=== PATIENT | female | born 1990 | race Hispanic/Latino ===

== ENCOUNTER 2017-12-20 15:11 | Inpatient (IN) | payer OTHER ==
[2017-12-20 15:46] LABS: BASO # 0.1 K/uL (0.0-0.2); BASO % 0.6 % (0.0-2.0); EOS # 0.1 K/uL (0.0-0.7); EOS % 1.1 % (0.0-4.0); HEMOGLOBIN 12.3 g/dL (11.0-16.0); LYMPH # 1.4 K/uL (1.0-4.3); LYMPH % 15.1 % (20.0-40.0); MEAN CELL VOLUME 91.6 fL (81.0-99.0); MEAN CORPUSCULAR HEMOGLOBIN 30.8 pg (27.0-31.0); MEAN CORPUSCULAR HGB CONC 33.6 g/dL (33.0-37.0); MONO # 0.4 K/uL (0.0-0.8); MONO % 4.4 % (0.0-10.0); NEUT # 7.4 K/uL (1.8-7.0); NEUT % 78.8 % (50.0-75.0); RBC 3.99 Mil/uL (3.80-5.20); RED CELL DISTRIBUTION WIDTH 14.5 % (11.5-14.5); WHITE BLOOD COUNT 9.4 K/uL (4.8-10.8)
--- NOTE | 2017-12-20 15:55 | C.PDOC ---
History Of Present Illness 27 y/o female with PMHx of opioid abuse presents to the ED requesting detox. Patient admits to using heroin (sniffing) and percocet, last use was yesterday around 3:00pm. She now complains of abdominal pain associated with hot and cold sweats. Patient denies any nausea, vomiting, tremors, dizziness, hallucinations, SI, HI, or other complaints. Time Seen by Provider: 12/20/17 15:22 Chief Complaint (Nursing): Substance Abuse History Per: Patient History/Exam Limitations: no limitations Onset/Duration Of Symptoms: Hrs Current Symptoms Are (Timing): Still Present Suicide/Self Injury Attempted (Context): None Modifying Factor(s): Other (Opioids) Associated Symptoms: denies: Suicidal Thoughts, Suicidal Plan Past Medical History Reviewed: Historical Data, Nursing Documentation, Vital Signs Vital Signs: Last Vital Signs Temp 98.3 F 12/20/17 15:17 Pulse 74 12/20/17 15:17 Resp 16 12/20/17 15:17 BP 116/66 12/20/17 15:17 Pulse Ox 100 12/20/17 15:17 - Medical History PMH: Asthma, Depression Family History: States: No Known Family Hx - Social History Hx Alcohol Use: No Hx Substance Use: Yes - Immunization History Hx Tetanus Toxoid Vaccination: No Hx Influenza Vaccination: Yes Hx Pneumococcal Vaccination: No Review Of Systems Except As Marked, All Systems Reviewed And Found Negative. Constitutional: Positive for: Sweats. Negative for: Fever, Chills Cardiovascular: Negative for: Chest Pain, Palpitations Respiratory: Negative for: Shortness of Breath Gastrointestinal: Positive for: Abdominal Pain. Negative for: Nausea, Vomiting, Diarrhea Musculoskeletal: Negative for: Other (tremor) Neurological: Negative for: Weakness, Numbness Psych: Negative for: Suicidal ideation (or homicidal ideation), Other (hallucinations) Physical Exam - Physical Exam Appears: Non-toxic, No Acute Distress Skin: Normal Color, Warm, Dry Head: Atraumatic, Normacephalic Eye(s): bilateral: Normal Inspection Oral Mucosa: Moist Neck: Normal ROM Chest: Symmetrical Cardiovascular: Rhythm Regular Respiratory: Normal Breath Sounds, No Accessory Muscle Use, Other (speaking in full sentences) Gastrointestinal/Abdominal: Soft, No Tenderness, No Guarding, No Rebound Extremity: Bilateral: Atraumatic, Normal Color And Temperature Neurological/Psych: Oriented x3, Normal Speech ED Course And Treatment - Laboratory Results Result Diagrams: 12/20/17 15:41 12/20/17 15:41 O2 Sat by Pulse Oximetry: 100 (RA) Pulse Ox Interpretation: Normal Medical Decision Making Medical Decision Making: Impression: Detox for heroin/percocet abuse, Pre-screened Plan: --CMP --Magnesium --Phosphorous --CBC --Alcohol serum --UDS --UA --Urine HCG --psychiatric social worker will evaluate and arrange detox if appropriate Disposition Counseled Patient/Family Regarding: Diagnosis - Disposition Disposition: HOSPITALIZED Disposition Time: 18:39 Condition: GUARDED Forms: [facility] (Urdu) - Clinical Impression Clinical Impression: Drug dependence - Scribe Statement The provider has reviewed the documentation as recorded by the Rigo Gallardo Provider Attestation: All medical record entries made by the [employer] were at my direction and pers onally dictated by me. I have reviewed the chart and agree that the record accurately reflects my personal performance of the history, physical exam, medical decision making, and the department course for this patient. I have also personally directed, reviewed, and agree with the discharge instructions and disposition. Decision To Admit - Pt Status Changed To: Hospital Disposition Of: Inpatient - Admit Certification Admit to Inpatient:: After my assessment, the patient will require hospital ization for at least two midnights. This is because of the severity of symptoms shown, intensity of services needed, and/or the medical risk in this patient being treated as an outpatient. - InPatient: Physician Admission Certification: I certify that this patient requires 2 or more midnights of care for the following reason:: detox, withdrawl. - . Bed Request Type: Detox Patient Diagnosis: Drug dependence
[2017-12-20 16:04] LABS: ALB/GLOB RATIO 1.5 (1.0-2.1); ALBUMIN 4.1 g/dL (3.5-5.0); ALT/SGPT 20 U/L (9-52); AST/SGOT 19 U/L (14-36); BLOOD UREA NITROGEN 17 mg/dL (7-17); CALCIUM 8.7 mg/dl (8.6-10.4); GFR NON-AFRICAN AMERICAN > 60
[2017-12-20 17:08] LABS: HCG,QUALITATIVE URINE NEGATIVE (NEGATIVE)
[2017-12-20 17:11] LABS: SQUAMOUS EPITHIAL 3 /hpf (0-5); URINE BACTERIA MOD (<OCC); URINE BILIRUBIN NEGATIVE (NEGATIVE); URINE BLOOD NEGATIVE (NEGATIVE); URINE CLARITY Hazy (Clear); URINE GLUCOSE (UA) NORMAL (Normal); URINE LEUKOCYTE ESTERASE TRACE Leu/uL (Negative); URINE PROTEIN NEGATIVE (NEGATIVE); URINE UROBILINOGEN NORMAL mg/dL (0.2-1.0)
[2017-12-20 17:15] LABS: URINE COLOR YELLOW (YELLOW)
[2017-12-20 17:28] LABS: BARBITURATES, UR NEGATIVE (NEGATIVE); BENZODIAZEPINES, UR NEGATIVE (NEGATIVE); PHENCYCLIDINE, UR NEGATIVE (NEGATIVE)
[2017-12-20 17:31] LABS: OPIATES, UR POSITIVE (NEGATIVE)
--- NOTE | 2017-12-20 18:55 | PCM.BM ---
<Desiree Vogt - Last Filed: 12/20/17 18:54> Treatment Plan Problems - Problems identified on initial assessmt Potential for opiate withdrawal Date Initiated: 12/20/17 Time Initiated: 18:54 Assessment reference: NA Status: Active Treatment assets and liabiliti Patient Assests: ADL independent, negotiates basic needs, cognitively intact Patient Liabilities: substance abuse - Milieu Protocol Maintain good personal hygiene: daily Encourage regular showers, daily Remind patient to perform daily oral care, daily Assist patient to perform ADL's Conduct patient checks and document Observation sheet: Q15 minutes Maintain personal safety: every shift Educate patient to report safety concerns to staff, every shift Monitor environment for contraband/sharps Medication safety: Monitor for expected outcome, potential side effects: every shift, Assess barriers to learning: every shift, Assess readiness for medication education: every shift <Laverne Artis - Last Filed: 12/22/17 08:43> Family Contact Family involvement: Famliy/SO not involved - Goals for Treatment Patient goals for treatment: Complete detox and transition to inpatient-regional intermodal truck driver. Discharge/Continuing Care - Education Needs Education Needs: Patient Medication, Patient Diagnosis/Disease Process, Patient Coping Skills, Patient Anger Management skills, Patient Placement options, Patient Community resources - Discharge Discharge Criteria: No longer exhibiting s/s of withdrawal, Reduction of target symptoms Discharge to:: Substance Abuse Rehab - Treatment Team Participation Patient/Family/SO Statement: 12/22/17 08:43 "I wanna try to get in to [facility]..." Discussed with Family/SO: No Was Patient/Family/SO present at Treatment Team Meeting: Yes <Leti Cloud - Last Filed: 12/22/17 14:34> - Diagnosis (1) Opioid use disorder, severe, dependence Status: Acute Interventions: 12/22/17 14:34 * Assess 7x/week regarding severity of withdrawal * Educate regarding risks, benefits, side effects and alternatives of medicat ions * Use Motivational Interviewing for abstinence * Use CBT for relapse prevention * Medication management for withdrawal symptoms * Encourage medication assisted treatment *
[2017-12-21] MEDS ORDERED: Albuterol HFA 90 mcg/actuation (8 g) INH PRN (09:38)
[2017-12-21] MEDS ORDERED: Aluminum Hydroxide/Magnesium Hydroxide Susp (30 mL) PO PRN (14:21)
--- NOTE | 2017-12-21 14:24 | PCM.PSYCH ---
Initial Psychiatric Evaluation - Initial Psychiatric Evaluation Type of Admission: Voluntary Legal Status: Capacity Chief Complaint (in patient's own words): "I need detox" History of Present Illness and Precipitating Events: Pt is a 27yr old female with a history of asthma, depression, and varicose veins. She presented to the ED today requesting detox. Patient states that her use of opiates began in 2015 after she was prescribed opiate painkillers after a vein stripping due to varicose veins. She states she was able to get off of them while she was , then was given them again for pain after her section despite dislosure of an opiate abuse history. She has been using opiates since then. Typical usage is 2 Cathy 30mg and 3-7x 10mg Percocet per day. She states that when she is not able to get paink illers she will sniff 1-2 bags of heroin. Last use was yesterday around 3pm. She denies use of other drugs or alcohol use however her ED Utox tested positive for cocaine, which she believes is mixed into her cocaine. She admits she is currently withdrawing. Patient has a history of 2 psychiatric hospital admissions for post- depression, and when she was 14 for Ecstacy use at [facility]. She previously attended a detox program at [facility] in August. She denies thoughts of self harm/harm to others, depressed mood, anhedonia, or hallucinations and states that her mood has been OK while on treatment for depression. She admits to smoking 1/2 a pack a day on and off since she was 13 years old. Social hx: Patient lives with her grandmother and has 1 daughter whom her mother has custody of. 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 She has been eating well. Medical hx: Varicose veins, asthma, HPV Allergies: Amoxicillin, strawberries--> Rxn is hives for both Surgical hx: Vein stripping, D&C curettage, section, cold knife cervical cone biopsy Family hx: Denies Current Medications: Active Medications Generic Name Dose Route Start Last Admin Trade Name Freq PRN Reason Stop Dose Admin Albuterol 1 puff 12/21/17 09:38 Ventolin Hfa 90 Mcg/Actuation (8 G) INH RQ4 PRN SOB Fluoxetine HCl 20 mg 12/21/17 10:00 12/21/17 10:57 Prozac PO 20 mg BID ERIK Administration Hydroxyzine HCl 25 mg 12/20/17 19:20 12/20/17 21:11 Atarax PO 25 mg Q6 PRN Administration Anxiety Methadone HCl 15 mg 12/21/17 10:00 12/21/17 10:57 Methadone PO 12/25/17 09:59 15 mg Q24H ERIK Administration Taper Trazodone HCl 50 mg 12/20/17 19:19 12/20/17 21:11 Desyrel PO 50 mg HS PRN Administration Insomnia Past Psychiatric History - Past Psychiatric History Previous Treatment History: Intensive Outpatient Pertinent Medical Hx (Current Medical&Sleep Prob, Allergies): Allergies Allergy/AdvReac Type Severity Reaction Status Date / Time amoxicillin Allergy Verified 12/20/17 15:16 strawberry Allergy Verified 12/20/17 15:16 Review of Systems - Neurological Neurological: UNREMARKABLE - Psychiatric Psychiatric: Abnormal Sleep Pattern, Anxiety, Change in Appetite, Depression, Difficulty Concentrating, Irritability. absent: Hallucinations, Homicidal Ideation, Paranoia, Suicidal Ideation Mental Status Examination - Personal Presentation Personal Presentation: Looks stated age - Affect Affect: Constricted - Motor Activity Motor Activity: Calm - Reliability in Providing Information Reliability in Providing Information: Good - Speech Speech: Organized - Mood Mood: Depressed, Anxious - Formal Thought Process Formal Thought Process: No Impairment - Cognitive Functions Orientation: Person, Place, Situation, Time Attention/Concentration: Attentive Estimate of Intelligence: Average Judgement: Intact, as evidence by: Insight regarding need for hospitalization Memory: Recent intact, as evidence by: Ability to recall events of the day, Remote intact, as evidenced by: Ability to recall historical events - Risk Risk: Withdrawal, Diminished functioning - Strength & Assets Inventory Strength & Assets Inventory: Cooperative - Limitations Limitations: Living alone DSM 5 DX - DSM 5 DSM 5 Diagnosis: Opioid withdrawal Opioid use d/o - severe r/o cocaine use d/o Major depression, moderate - Recommended/Plan of Treatment Treatment Recommendations and Plan of Treatment: Methadone taper Continue Prozac 20mg BID, becaus eof severe nausea her dr split the dose As needed medications All risks, benefits and alternatives of the meds discussed, and the pt agreed and understood. Attend groups and activities Supportive therapy and psychoeducation [place] for abstinence CBT for relapse prevention Encourage MAT Refer to rehab or IOP, and self-help groups Teach healthy lifestyle methods, i.e. diet, exercise, meditation 33 min Projected ELOS: 4-5 days Prognosis: good w treatment - Smoking Cessation Smoking Cessation Initiated: Yes
--- NOTE | 2017-12-22 13:05 | PCM.PYCHPN ---
Psychiatric Progress Note - Psychiatric Progress Note Patient seen today, length of contact: 17 min Patient Chief Complaint: "I am tired" Problems Identified/Issues Discussed: The pt is seen, chart reviewed, case discussed with staff. The pt is compliant with medications and reports no side-effects. Symptoms are improving but needs more time to stabilize. She has low BP and P , so methadone is held for a while Pt attends groups and activities. Support given, psycho-education provided. After care discussed. Medication Change: Yes (detox changes daily) Medical Record Reviewed: Yes Mental Status Examination - Cognitive Function Orientation: Person, Place, Situation, Time Memory: Intact Attention: WNL Concentration: Poor Association: WNL Fund of Knowledge: WNL - Mood Mood: Depressed, Anxious - Affect Affect: Constricted - Speech Speech: Appropriate - Formal Thought Process Formal Thought Process: No Impairment - Suicidal Ideation Suicidal Ideation: No - Homicidal Ideation Homicidal Ideation: No Goal/Treatment Plan - Goal/Treatment Plan Need for Continued Stay: Discharge may exacerbated symptoms, Severe functional impairment Progress Toward Problem(s) and Goals/Treatment Plan: Methadone taper Continue Prozac 20mg BID, becaus eof severe nausea her dr split the dose As needed medications All risks, benefits and alternatives of the meds discussed, and the pt agreed and understood. Attend groups and activities Supportive therapy and psychoeducation [place] for abstinence CBT for relapse prevention Encourage MAT Refer to rehab or IOP, and self-help groups Teach healthy lifestyle methods, i.e. diet, exercise, meditation Estimated Date of D/C: 12/24/17
--- NOTE | 2017-12-22 16:02 | RAD ---
HISTORY: rehab admission COMPARISON: No prior. TECHNIQUE: Chest PA and lateral FINDINGS: LUNGS: No focal consolidation. Please note that chest x-ray has limited sensitivity for the detection of pulmonary masses. PLEURA: No significant pleural effusion identified. No definite pneumothorax . CARDIOVASCULAR: The cardiomediastinal silhouette appears within normal limits of size. No atherosclerotic calcification present. OSSEOUS STRUCTURES: No acute osseous abnormality identified. VISUALIZED UPPER ABDOMEN: Unremarkable. OTHER FINDINGS: None. IMPRESSION: No focal consolidation, significant pleural effusion, or definite pneumothorax identified.
--- NOTE | 2017-12-23 08:42 | PCM.PYCHPN ---
Psychiatric Progress Note - Psychiatric Progress Note Patient seen today, length of contact: 16 min Patient Chief Complaint: "I am OK" Problems Identified/Issues Discussed: The pt is seen, chart reviewed, case discussed with staff. Support and psychoeducation given, CBT and [place] used briefly No new symptoms reported, improving slowly and needs more time No SEs from medications, except for low BP/P from methadone; risks discussed. After care discussed Medication Change: Yes (detox changes daily) Medical Record Reviewed: Yes Mental Status Examination - Cognitive Function Orientation: Person, Place, Situation, Time Memory: Intact Attention: WNL Concentration: Poor Association: WNL Fund of Knowledge: WNL - Mood Mood: Depressed, Anxious - Affect Affect: Constricted - Speech Speech: Appropriate - Formal Thought Process Formal Thought Process: No Impairment - Suicidal Ideation Suicidal Ideation: No - Homicidal Ideation Homicidal Ideation: No Goal/Treatment Plan - Goal/Treatment Plan Need for Continued Stay: Discharge may exacerbated symptoms, Severe functional impairment Progress Toward Problem(s) and Goals/Treatment Plan: Methadone taper Continue Prozac 20mg BID, becaus eof severe nausea her dr split the dose As needed medications All risks, benefits and alternatives of the meds discussed, and the pt agreed and understood. Attend groups and activities Supportive therapy and psychoeducation [place] for abstinence CBT for relapse prevention Encourage MAT Refer to rehab or IOP, and self-help groups Teach healthy lifestyle methods, i.e. diet, exercise, meditation Estimated Date of D/C: 12/24/17
--- NOTE | 2017-12-24 08:50 | PCM.PYCHDC ---
Mental Status Examination - Mental Status Examination Orientation: Person Discharge Summary - Discharge Note Consultations:: List each consultation separately and include: 1. Reason for request. 2. Findings. 3. Follow-up Summary of Hospital Course include:: 1. Description of specific treatment plan utilized for patients during their course of treatmen. 2. Summarize the time- course for resolution of acute symptoms and/or regressed behaviors. 3. Describe issues identified and worked on during hospitalization. 4. Describe medication utilized. 5. Describe medical problems identified and treated. 6. Reassessment of suicide risk Summary of Hospital Course: Pt is a 27yr old female with a history of asthma, depression, and varicose veins. She presented to the ED today requesting detox. Patient states that her use of opiates began in 2015 after she was prescribed opiate painkillers after a vein stripping due to varicose veins. She states she was able to get off of them while she was , then was given them again for pain after her section despite dislosure of an opiate abuse history. She has been using opiates since then. Typical usage is 2 Cathy 30mg and 3-7x 10mg Percocet per day. She states that when she is not able to get painkillers she will sniff 1-2 bags of heroin. Last use was yesterday around 3pm. She denies use of other drugs or alcohol use however her ED Utox tested positive for cocaine, which she believes is mixed into her cocaine. She admits she is currently withdrawing. Patient has a history of 2 psychiatric hospital admissions for post- depression, and when she was 14 for Ecstacy use at [facility]. She previously attended a detox program at [facility] in August. She denies thoughts of self harm/harm to others, depressed mood, anhedonia, or hallucinations and states that her mood has been OK while on treatment for depression. She admits to smoking 1/2 a pack a day on and off since she was 13 years old. Social hx: Patient lives with her grandmother and has 1 daughter whom her mother has custody of. 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 She has been eating well. Medical hx: Varicose veins, asthma, HPV Allergies: Amoxicillin, strawberries--> Rxn is hives for both Surgical hx: Vein stripping, D&C curettage, section, cold knife cervical cone biopsy Family hx: Denies She went to 's home and will stay inside until [facility] has a bed either tomorrow or Wednesday. She is accepted. Her BP/P dropped with methadone and so her detox was difficult. - Final Diagnosis (DSM 5) Condition upon Discharge: GUARDED Disposition: HOME/ ROUTINE Follow-up Treatment Plan: Methadone taper Continue Prozac 20mg BID, becaus eof severe nausea her dr split the dose As needed medications All risks, benefits and alternatives of the meds discussed, and the pt agreed and understood. Attend groups and activities Supportive therapy and psychoeducation [place] for abstinence CBT for relapse prevention Encourage MAT Refer to rehab or IOP, and self-help groups Teach healthy lifestyle methods, i.e. diet, exercise, meditation Prescriptions/Medication Reconciliation: Albuterol HFA [Ventolin HFA 90 mcg/actuation (8 g)] 1 puff INH RQ4 PRN #1 inhaler PRN Reason: SOB FLUoxetine [Prozac] 20 mg PO BID #60 cap Nitrofurantoin Macrocrystals [Macrobid] 100 mg PO BIDCC #10 cap traZODone [Desyrel] 50 mg PO HS PRN #30 tab PRN Reason: Insomnia
[2017-12-24 11:18] VITALS: BP 87/44; PULSE 74; RESP 20; TEMP 97.5; O2SAT 99
== END 2017-12-24 11:45 | disposition home or self-care (01) | DRG 751 ==
LOC: C.ER 15:11 → C.7D 18:40
PROVIDERS: ADMIT Psychiatry & Neurology Psychiatry; ATTEND Psychiatry & Neurology Psychiatry
DX: F32.1 Major depressive disorder, single episode, moderate (principal); F11.23 Opioid dependence with withdrawal; F17.210 Nicotine dependence, cigarettes, uncomplicated; J45.909 Unspecified asthma, uncomplicated

== ENCOUNTER 2018-04-02 16:49 | Inpatient (IN) | payer OTHER ==
--- NOTE | 2018-04-02 17:39 | C.PDOC ---
History Of Present Illness 28 year old female presents to the ED requesting narcotic pill detox. No medical complaints at this time. <Deanna Bell - Last Filed: 04/02/18 19:03> History Per: Patient History/Exam Limitations: no limitations Recent travel outside of the [place]: No <Deanna Bell - Last Filed: 04/02/18 19:03> <Liam Yeboah - Last Filed: 04/02/18 19:33> Time Seen by Provider: 04/02/18 17:37 Chief Complaint (Nursing): Substance Abuse Past Medical History Reviewed: Historical Data, Nursing Documentation, Vital Signs Vital Signs: Last Vital Signs Temp 97.3 F L 04/02/18 16:55 Pulse 83 04/02/18 16:55 Resp 16 04/02/18 16:55 BP 85/57 L 04/02/18 16:55 Pulse Ox 100 04/02/18 16:55 - Medical History PMH: Asthma, Depression Denies: Diabetes, Hepatitis, HIV, HTN, Seizures, Sexually Transmitted Disease Family History: States: Unknown Family Hx - Social History Hx Alcohol Use: No Hx Substance Use: Yes - Immunization History Hx Tetanus Toxoid Vaccination: No Hx Influenza Vaccination: Yes Hx Pneumococcal Vaccination: No <Deanna Bell - Last Filed: 04/02/18 19:03> Vital Signs: Last Vital Signs Temp 97.3 F L 04/02/18 16:55 Pulse 83 04/02/18 16:55 Resp 16 04/02/18 16:55 BP 85/57 L 04/02/18 16:55 Pulse Ox 100 04/02/18 19:03 <Liam Yeboah - Last Filed: 04/02/18 19:33> Review Of Systems Except As Marked, All Systems Reviewed And Found Negative. Neurological: Positive for: Other (narcotic pill detox.) <Deanna Bell - Last Filed: 04/02/18 19:03> Physical Exam - Physical Exam Appears: Non-toxic, No Acute Distress Skin: Warm, Dry Head: Atraumatic, Normacephalic Eye(s): bilateral: Normal Inspection Oral Mucosa: Moist Neck: Normal ROM Chest: Symmetrical Cardiovascular: Rhythm Regular, No Murmur Respiratory: Normal Breath Sounds, No Rales, No Rhonchi, No Wheezing, No Other (NARD) Gastrointestinal/Abdominal: Normal Exam, Soft, No Tenderness Extremity: Bilateral: Atraumatic, Normal Color And Temperature Neurological/Psych: Oriented x3, Normal Speech <Deanna Bell - Last Filed: 04/02/18 19:03> ED Course And Treatment - Laboratory Results Result Diagrams: 04/02/18 18:20 04/02/18 18:20 O2 Sat by Pulse Oximetry: 100 (RA) Pulse Ox Interpretation: Normal <Deanna Bell - Last Filed: 04/02/18 19:03> - Laboratory Results Result Diagrams: 04/02/18 18:20 04/02/18 18:20 Lab Results: Total Bilirubin 0.3 mg/dL (0.2-1.3) 04/02/18 18:20 AST 19 U/L (14-36) 04/02/18 18:20 ALT 24 U/L (9-52) 04/02/18 18:20 Alkaline Phosphatase 66 U/L (38-126) 04/02/18 18:20 Total Protein 6.5 g/dL (6.3-8.3) 04/02/18 18:20 Albumin 4.1 g/dL (3.5-5.0) 04/02/18 18:20 Globulin 2.4 gm/dL (2.2-3.9) 04/02/18 18:20 Albumin/Globulin Ratio 1.7 (1.0-2.1) 04/02/18 18:20 Urine Color [place] (YELLOW) 04/02/18 17:37 Urine Clarity Hazy (Clear) 04/02/18 17:37 Urine pH 5.0 (5.0-8.0) 04/02/18 17:37 Ur Specific [place] 1.026 (1.003-1.030) 04/02/18 17:37 Urine Protein Negative mg/dL (NEGATIVE) 04/02/18 17:37 Urine Glucose (UA) Normal mg/dL (Normal) 04/02/18 17:37 Urine Ketones Negative mg/dL (NEGATIVE) 04/02/18 17:37 Urine Blood Negative (NEGATIVE) 04/02/18 17:37 Urine Nitrate Negative (NEGATIVE) 04/02/18 17:37 Urine Bilirubin Negative (NEGATIVE) 04/02/18 17:37 Urine Urobilinogen 2.0 mg/dL (0.2-1.0) H 04/02/18 17:37 Ur Leukocyte Esterase Neg [place]ira/uL (Negative) 04/02/18 17:37 Urine WBC (Auto) 14 /hpf (0-5) H 04/02/18 17:37 Urine RBC (Auto) 4 /hpf (0-3) H 04/02/18 17:37 Ur Squamous Epith Cells 2 /hpf (0-5) 04/02/18 17:37 Urine Bacteria Rare (<OCC) 04/02/18 17:37 Urine HCG, Qual Negative (NEGATIVE) 04/02/18 17:37 Urine HCG, Qual Negative (NEGATIVE) 04/02/18 17:37 Lab Interpretation: Abnormal (tox + benzo's, THC) Urine POC: Negative <Liam Yeboah - Last Filed: 04/02/18 19:33> Progress - Re-Evaluation Re-evaluation Note: 04/02/18 17:38 D/W CRISIS WILL EVAL - Data Reviewed Data Reviewed: Lab, Old records <Deanna Bell - Last Filed: 04/02/18 19:03> Medical Decision Making Medical Decision Making: Initial plan: -Blood sent. -HCG Urine -Urinalysis Progress/Update: Current vitals are consistent with prior vitals from previous visits. Pt is medically cleared for detox, crisis notified. <Deanna Bell - Last Filed: 04/02/18 19:03> Medical Decision Makin: signed over pending detox for opiates/percocet/Roxicet pt seen examined comfortable, pupilar mydriasis tox + benzo's, + THC, but not narcs d/w Crisis, sometimes Perc not picked up on our UDS 1930: ok to Detox <Liam Yeboah - Last Filed: 04/02/18 19:33> Disposition Discussed With : Emre Chacon Counseled Patient/Family Regarding: Diagnosis, Need For Followup - Disposition Disposition Time: 19:00 <Deanna Bell - Last Filed: 04/02/18 19:03> Doctor Will See Patient In The: Hospital <Liam Yeboah - Last Filed: 04/02/18 19:33> - Disposition Disposition: HOME/ ROUTINE Condition: GOOD Forms: [facility] ([place]) - Clinical Impression Clinical Impression: Opioid use disorder, severe, dependence - Scribe Statement The provider has reviewed the documentation as recorded by the Scribe (Mary Stovall) Provider Attestation: All medical record entries made by the Scribe were at my direction and personally dictated by me. I have reviewed the chart and agree that the record accurately reflects my personal performance of the history, physical exam, medical decision making, and the department course for this patient. I have also personally directed, reviewed, and agree with the discharge instructions and disposition. <Deanna Bell - Last Filed: 04/02/18 19:03> Physician Patient Turnover Patient Signed Over To: Liam Yeboah Handoff Comments: FU CRISIS DISPO <Deanna Bell - Last Filed: 04/02/18 19:03>
[2018-04-02 17:41] LABS: HCG,QUALITATIVE URINE NEGATIVE (NEGATIVE)
[2018-04-02 17:45] LABS: SQUAMOUS EPITHIAL 2 /hpf (0-5); URINE BACTERIA RARE (<OCC); URINE BILIRUBIN NEGATIVE (NEGATIVE); URINE BLOOD NEGATIVE (NEGATIVE); URINE CLARITY Hazy (Clear); URINE COLOR Amber (YELLOW); URINE GLUCOSE (UA) NORMAL (Normal); URINE LEUKOCYTE ESTERASE NEG Leu/uL (Negative); URINE PROTEIN NEGATIVE (NEGATIVE)
[2018-04-02 17:58] LABS: BARBITURATES, UR NEGATIVE (NEGATIVE); OPIATES, UR NEGATIVE (NEGATIVE); PHENCYCLIDINE, UR NEGATIVE (NEGATIVE)
[2018-04-02 17:59] LABS: BENZODIAZEPINES, UR POSITIVE (NEGATIVE)
[2018-04-02 18:23] LABS: BASO % 0.6 % (0.0-2.0); EOS # 0.2 K/uL (0.0-0.7); EOS % 2.3 % (0.0-4.0); HEMOGLOBIN 11.9 g/dL (11.0-16.0); LYMPH # 2.4 K/uL (1.0-4.3); LYMPH % 35.6 % (20.0-40.0); MEAN CELL VOLUME 91.8 fL (81.0-99.0); MEAN CORPUSCULAR HEMOGLOBIN 30.3 pg (27.0-31.0); MONO # 0.4 K/uL (0.0-0.8); MONO % 5.9 % (0.0-10.0); NEUT # 3.7 K/uL (1.8-7.0); NEUT % 55.6 % (50.0-75.0); RBC 3.92 Mil/uL (3.80-5.20); RED CELL DISTRIBUTION WIDTH 13.2 % (11.5-14.5); WHITE BLOOD COUNT 6.7 K/uL (4.8-10.8)
[2018-04-02 18:38] LABS: ALB/GLOB RATIO 1.7 (1.0-2.1); ALBUMIN 4.1 g/dL (3.5-5.0); ALT/SGPT 24 U/L (9-52); AST/SGOT 19 U/L (14-36); BLOOD UREA NITROGEN 14 mg/dL (7-17); CALCIUM 8.3 mg/dl (8.6-10.4); GFR NON-AFRICAN AMERICAN > 60
--- NOTE | 2018-04-02 20:12 | PCM.BM ---
<Yasmany Wade - Last Filed: 04/02/18 20:09> Treatment Plan Problems - Problems identified on initial assessmt denial Date Initiated: 04/02/18 Time Initiated: 20:09 Assessment reference: NA Status: Active defenensive coping Date Initiated: 04/02/18 Time Initiated: 20:10 Assessment reference: NA Status: Active hopelelessness Date Initiated: 04/02/18 Time Initiated: 20:12 Assessment reference: NA Status: Active Treatment assets and liabiliti Patient Assests: ADL independent, negotiates basic needs, cognitively intact Patient Liabilities: substance abuse - Milieu Protocol Maintain good personal hygiene: daily Encourage regular showers, daily Remind patient to perform daily oral care, daily Assist patient to perform ADL's Conduct patient checks and document Observation sheet: Q15 minutes Maintain personal safety: every shift Educate patient to report safety concerns to staff, every shift Monitor environment for contraband/sharps Medication safety: Monitor for expected outcome, potential side effects: every shift, Assess barriers to learning: every shift, Assess readiness for medication education: every shift <Leti Cloud - Last Filed: 04/05/18 13:20> - Diagnosis (1) Opioid use disorder, severe, dependence Status: Acute Interventions: 04/04/18 13:20 * Assess 7x/week regarding severity of withdrawal * Educate regarding risks, benefits, side effects and alternatives of medications * Use Motivational Interviewing for abstinence * Use CBT for relapse prevention * Medication management for withdrawal symptoms * Encourage medication assisted treatment * <Laverne Artis - Last Filed: 04/06/18 09:15> Family Contact Family involvement: Famliy/SO not involved - Goals for Treatment Patient goals for treatment: Complete detox and aedhere to [facility] guidelines for aftercare. Discharge/Continuing Care - Education Needs Education Needs: Patient Medication, Patient Diagnosis/Disease Process, Patient Coping Skills, Patient Anger Management skills, Patient Placement options, Patient Community resources, Patient Other ([facility] involvement) - Discharge Discharge Criteria: No longer exhibiting s/s of withdrawal, Reduction of target symptoms Discharge to:: Home - Treatment Team Participation Patient/Family/SO Statement: 04/06/18 09:15 "I gotta do a psychological evaluation with [facility] and they're gonna recommend a treatment program after that..." Discussed with Family/SO: No Was Patient/Family/SO present at Treatment Team Meeting: Yes
[2018-04-03] MEDS ORDERED: Aluminum Hydroxide/Magnesium Hydroxide Susp (30 mL) PO PRN (01:37)
--- NOTE | 2018-04-03 09:11 | PCM.PSYCH ---
Initial Psychiatric Evaluation - Initial Psychiatric Evaluation Type of Admission: Voluntary Legal Status: Capacity Chief Complaint (in patient's own words): I came in to get help.' History of Present Illness and Precipitating Events: Pt. is a 28 years old female, who currently lives with her grandmother, currently unemployed, came to the ED to get help in opioid detox. Patient reports history of 3 inpatient psychiatric hospitalizations, due to depression. She also reports history of follow-up with an outpatient psychiatrist in the past. However she reports that her psychiatrist stopped her medications. She reports history of taking Prozac and Xanax in the past. She reports that currently she is abusing on 7-15 10 mg Percocets on a daily basis. She reports that yesterday she consumed more than 10 tablets and started feeling withdrawal symptoms, so she came to the ED to get help. She reports withdrawal symptoms including anxiety, headaches, and sweating. She reports anxiety but denies any feelings of hopelessness or helplessness. She denies any suicidal ideation or any homicidal ideation. She denies any auditory hallucinations and paranoia. She also reports of abusing cannabis but denies any drinking or any other substance abuse. Past medical history None reported Current Medications: Active Medications Generic Name Dose Route Start Last Admin Trade Name Freq PRN Reason Stop Dose Admin Al Hydrox/Mg Hydrox/Simethicone 30 ml 04/03/18 01:37 Maalox 30 Ml PO TID PRN Indigestion / Heartburn Clonidine HCl 0.1 mg 04/03/18 01:37 Catapres PO Q4 PRN COWS Score More or Equal to 5 Dicyclomine HCl 10 mg 04/03/18 01:37 Bentyl PO Q6 PRN Muscle spasm Hydroxyzine HCl 25 mg 04/02/18 21:41 Atarax PO Q6 PRN Anxiety Loperamide HCl 2 mg 04/03/18 01:37 Imodium PO Q8 PRN Diarrhea Ondansetron HCl 4 mg 04/03/18 01:37 Zofran Tab PO Q8 PRN Nausea/Vomiting Pseudoephedrine HCl 60 mg 04/03/18 01:37 Sudafed Tab PO QID PRN Nasal/Sinus Congestion Trazodone HCl 50 mg 04/02/18 22:00 Desyrel PO HS PRN Insomnia Past Psychiatric History - Past Psychiatric History Previous Treatment History: Inpatient Pertinent Medical Hx (Current Medical&Sleep Prob, Allergies): Allergies Allergy/AdvReac Type Severity Reaction Status Date / Time amoxicillin Allergy Verified 04/02/18 16:51 strawberry Allergy Verified 04/02/18 16:51 No Known Home Med 04/02/18 Review of Systems - Review of Systems All systems: reviewed and no additional remarkable complaints except - Psychiatric Psychiatric: Anxiety, Irritability. absent: Suicidal Ideation Mental Status Examination - Personal Presentation Personal Presentation: Looks stated age - Affect Affect: Constricted - Motor Activity Motor Activity: Calm - Reliability in Providing Information Reliability in Providing Information: Fair - Speech Speech: Organized - Mood Mood: Anxious - Formal Thought Process Formal Thought Process: No Impairment - Obsessions/Compulsions Obsessions: No Compulsions: No - Cognitive Functions Orientation: Person, Place, Situation, Time Sensorium: Alert Abstract Thinking: [place] Estimate of Intelligence: Below average Judgement: Imparied, as evidence by: Poor judgement, Intact, as evidence by: Insight regarding need for hospitalization - Risk Risk: Withdrawal, Diminished functioning - Limitations Limitations: Living alone DSM 5 DX - DSM 5 DSM 5 Diagnosis: Opioid use disorder severe Opioid withdrawal Cannabis use disorder moderate History of post depression - Recommended/Plan of Treatment Treatment Recommendations and Plan of Treatment: Opioid use disorder severe Opioid withdrawal Cannabis use disorder moderate History of post depression CBT Psychoeducation Supportive therapy and group therapy and milieu therapy Subutex taper Withdrawal medications including Zofran/Imodium/clonidine Neurontin for augmentation Trazodone for insomnia [place] for relapse prevention - Smoking Cessation Smoking Cessation Initiated: No
--- NOTE | 2018-04-04 13:13 | PCM.PYCHPN ---
Psychiatric Progress Note - Psychiatric Progress Note Patient seen today, length of contact: 16 min Patient Chief Complaint: "Withdrawing" Problems Identified/Issues Discussed: The pt is seen, chart reviewed, case is discussed with staff. The pt is compliant with medications and reports no side-effects. Symptoms are improving but needs more time to stabilize and to avoid relapse. Pt attends groups and activities. Support given, psycho-education provided. After care discussed. Medication Change: Yes (detox changes daily) Medical Record Reviewed: Yes Mental Status Examination - Cognitive Function Orientation: Person, Place, Situation, Time Memory: Intact Attention: WNL Concentration: Poor Association: WNL Fund of Knowledge: WNL - Mood Mood: Anxious - Affect Affect: Constricted - Speech Speech: Appropriate - Formal Thought Process Formal Thought Process: No Impairment - Suicidal Ideation Suicidal Ideation: No - Homicidal Ideation Homicidal Ideation: No Goal/Treatment Plan - Goal/Treatment Plan Need for Continued Stay: Discharge may exacerbated symptoms, Severe functional impairment Progress Toward Problem(s) and Goals/Treatment Plan: Continue medications Support and psychoeducation daily Attend groups and activities daily Individual therapy After care planning by JUDITH and the team
[2018-04-05] MEDS ORDERED: Magnesium Hydroxide Susp 30 ml UD PO ONE ×2 (07:45→09:47)
--- NOTE | 2018-04-05 13:24 | PCM.PYCHPN ---
Psychiatric Progress Note - Psychiatric Progress Note Patient seen today, length of contact: 16 min Patient Chief Complaint: "A little better" Problems Identified/Issues Discussed: The pt is seen, chart reviewed, case discussed with staff. Support and psychoeducation given, CBT and ME used briefly Pt is improving slowly and needs more time, still has ongoing symptoms. No SEs from medications, risks discussed. After care discussed. She wants to leave tomorrow so she can attend a court with [facility] on [place] Medication Change: Yes (detox changes daily) Medical Record Reviewed: Yes Mental Status Examination - Cognitive Function Orientation: Person, Place, Situation, Time Memory: Intact Attention: WNL Concentration: Poor Association: WNL Fund of Knowledge: WNL - Mood Mood: Anxious - Affect Affect: Constricted - Speech Speech: Appropriate - Formal Thought Process Formal Thought Process: No Impairment - Suicidal Ideation Suicidal Ideation: No - Homicidal Ideation Homicidal Ideation: No Goal/Treatment Plan - Goal/Treatment Plan Need for Continued Stay: Discharge may exacerbated symptoms, Severe functional impairment Progress Toward Problem(s) and Goals/Treatment Plan: Continue medications Support and psychoeducation daily Attend groups and activities daily Individual therapy After care planning by counselors and the team
--- NOTE | 2018-04-06 08:52 | PCM.PYCHDC ---
Mental Status Examination - Mental Status Examination Orientation: Person Discharge Summary - Discharge Note Consultations:: List each consultation separately and include: 1. Reason for request. 2. Findings. 3. Follow-up Summary of Hospital Course include:: 1. Description of specific treatment plan utilized for patients during their course of treatmen. 2. Summarize the time- course for resolution of acute symptoms and/or regressed behaviors. 3. Describe issues identified and worked on during hospitalization. 4. Describe medication utilized. 5. Describe medical problems identified and treated. 6. Reassessment of suicide risk - Diagnosis (1) Opioid use disorder, severe, dependence Current Visit: Yes Status: Acute - Final Diagnosis (DSM 5) Condition upon Discharge: GOOD Disposition: HOME/ ROUTINE Follow-up Treatment Plan: Continue medications Support and psychoeducation daily Attend groups and activities daily Individual therapy After care planning by counselors and the team Prescriptions/Medication Reconciliation: Gabapentin [Neurontin] 100 mg PO TID #90 cap QUEtiapine [Seroquel] 100 mg PO HS #30 tab traZODone [Desyrel] 50 mg PO HS PRN #30 tab PRN Reason: Insomnia
[2018-04-06 10:16] VITALS: BP 101/67; PULSE 78; RESP 17; TEMP 97.3; O2SAT 100
== END 2018-04-06 10:10 | disposition home or self-care (01) | DRG 745 ==
LOC: C.ER 16:49 → C.7D 19:33
PROVIDERS: ADMIT Psychiatry & Neurology Psychiatry; ATTEND Psychiatry & Neurology Psychiatry
PROC: HZ2ZZZZ Detoxification Services for Substance Abuse Treatment (ICD-10-PCS; principal; 2018-04-02)
DX: F11.23 Opioid dependence with withdrawal (principal); F41.9 Anxiety disorder, unspecified; J45.909 Unspecified asthma, uncomplicated; H57.04 Mydriasis; F12.10 Cannabis abuse, uncomplicated